=== PATIENT | male | born 1960 | race Caucasian/White ===

== ENCOUNTER 2018-08-01 04:34 | Emergency (ER) | payer OTHER ==
[~2018-08-01] VITALS: Ht 170.2 cm; Wt 100.0 kg
[~2018-08-01 04:34] MED LIST: FOLI1TAB16 PO; HYDR-4353 PO; IBUP-1986 PO; THI100T PO
[2018-08-01] MEDS ORDERED: AMLO-94 PO (04:46)
[2018-08-01] MEDS ORDERED: ASPI-1265 PO (04:46)
[2018-08-01] MEDS ORDERED: LOSA25TA96 PO (04:46)
[2018-08-01] MEDS ORDERED: ACET325C PO (04:46)
[2018-08-01 05:21] LABS: BASOPHILS # (AUTO) 0.1 X10'3 (0-0.2); BASOPHILS % (AUTO) 0.5 % (0-1); EOSINOPHILS # (AUTO) 0.2 X10'3 (0-0.9); EOSINOPHILS % (AUTO) 1.8 % (0-6); HEMATOCRIT 44.6 % (42.0-52.0); HEMOGLOBIN 15.3 g/dl (14.0-17.9); LYMPHOCYTES # (AUTO) 1.2 X10'3 (1.1-4.8); MEAN CORPUSCULAR HEMOGLOBIN 30.6 PG (27.0-31.0); MEAN CORPUSCULAR HGB CONC 34.2 % (33.0-36.5); MEAN CORPUSCULAR VOLUME 89.4 FL (78-98); MEAN PLATELET VOLUME 7.7 FL (7.4-10.4); MONOCYTES # (AUTO) 1.2 X10'3 (0-0.9); MONOCYTES % (AUTO) 11.6 % (2-12); NEUTROPHILS # (AUTO) 7.3 X10'3 (1.8-7.7); NEUTROPHILS % (AUTO) 74.1 % (42-75); PLATELET COUNT 273 X10'3 (140-440); RED BLOOD COUNT 4.99 X10'6 (4.70-6.10); RED CELL DISTRIBUTION WIDTH 12.5 % (11.5-14.5)
[2018-08-01] MEDS ORDERED: morphine 4 MG/ML inj SYRINge IV PRN (05:35)
[2018-08-01] MEDS ORDERED: normal saline 1000ML IV soln IVB ONE ×2 (05:35→06:45)
[2018-08-01] MEDS ORDERED: ondansetron/PF 4mg/2ml inj IV ONE (05:35)
[2018-08-01 05:48] LABS: ALANINE AMINOTRANSFERASE 32 U/L (12-78); ALBUMIN 3.8 G/DL (3.4-5.0); ALBUMIN/GLOBULIN RATIO 1.1 (1.1-1.5); ALKALINE PHOSPHATASE 77 IU/L (46-116); AMYLASE 57 U/L (25-115); ANION GAP 8 (8-16); ASPARTATE AMINO TRANSFERASE 13 U/L (10-37); BILIRUBIN,TOTAL 0.8 MG/DL (0.1-1.0); BLOOD UREA NITROGEN 14 MG/DL (7-18); BUN/CREATININE RATIO 10.8 (5.4-32.0); CALCIUM 8.9 MG/DL (8.5-10.1); CHLORIDE 101 MMOL/L (99-107); GLUCOSE 167 MG/DL (70-104); LIPASE 186 U/L (73-393); SODIUM 137 MMOL/L (135-145); TOTAL CARBON DIOXIDE 28.1 MMOL/L (24-32); TOTAL PROTEIN 7.2 G/DL (6.4-8.2); eGFR 56 ML/MIN
[2018-08-01 06:00] LABS: INR 0.9 INR; PROTHROMBIN TIME 9.7 SECONDS (9.0-12.0)
[2018-08-01 06:10] VITALS: BP 147/80
[2018-08-01] MEDS ORDERED: FLO0.4C PO (06:30)
[2018-08-01] MEDS ORDERED: ONDA4TAB12 PO (06:30)
[2018-08-01] MEDS ORDERED: HYDR-3965 PO (06:30)
[2018-08-01] MEDS ORDERED: IBUP-1986 PO (06:43)
[2018-08-01] MEDS ORDERED: ketorolac tromethamine 15mg/ml inj. IV ONE (06:45)
[2018-08-01 07:42] LABS: CLARITY,URINE CLEAR (Clear); COLOR,URINE YELLOW (Yellow); GLUCOSE, URINE 100 mg/dl (Neg); KETONES,URINE NEGATIVE (Neg); LEUKOCYTE ESTERASE ,URINE NEGATIVE (Neg); NITRITES, URINE NEGATIVE (Neg); OCCULT BLOOD,URINE TRACE-INTACT (Neg); PROTEIN,URINE 30 mg/dl (Neg); UROBILINOGEN,URINE 0.2 E.U/dL (0.2-1.0)
[2018-08-01 07:46] LABS: UA COLLECTION TYPE CLN CATCH MIDSTREAM
[2018-08-01 07:48] LABS: BACTERIA,URINE NONE SEEN /HPF (Neg); MUCUS STRANDS NONE SEEN /LPF (Neg); RBC,URINE 0-2 /HPF (0-2); SQUAMOUS EPITHELIAL CELL,UR NONE SEEN /LPF (FEW); WBC,URINE 0-4 /HPF (0-4)
== END 2018-08-01 09:08 | disposition home or self-care (01) ==
LOC: ER 04:35
DX: N23 Unspecified renal colic (principal); Z87.442 Personal history of urinary calculi; Z79.82 Long term (current) use of aspirin; Z79.899 Other long term (current) drug therapy
CPT/HCPCS: 36415; 74176; 80053; 81001; 82150; 83690; 85025; 85610; 96374; 96375; 99285; J1885; J2270; J2405